=== PATIENT | male | born 1985 | race Caucasian/White ===

== ENCOUNTER 2017-01-28 06:02 | Day surgery (SDC) | payer BC ==
--- NOTE | ~2017-01-28 | OP ---
Record Of Operation [facility] [address] [place]. [address] NAME: ELENA TURNER : 81 STATUS : [facility] [place] PAT#: [id number] AGE: 31 ADM/REG DATE : 01/28/17 MR#: [id number] REPORT SERV DATE: 01/28/17 DICTATED BY: ZACH MOORE DATE: 01/28/17 REPORT STATUS : Draft TRANSCRIBED BY: MODL DATE: 01/28/17 DATE OF PROCEDURE: 01/28/2017 PREOPERATIVE DIAGNOSES: 1. Bilateral inguinal hernias, right greater than left. 2. Nicotine dependence. POSTOPERATIVE DIAGNOSES: 1. Bilateral inguinal hernias, right greater than left. 2. Nicotine dependence. PROCEDURE: Robotic indirect reducible bilateral inguinal hernias with mesh. ANESTHESIA: General. SURGEON: Zach Moore M.D. COMMODITY MANAGEMENT SPECIALIST: Abdoulaye. COMPLICATIONS: None. DRAINS: None. ESTIMATED BLOOD LOSS: 20 mL. FINDINGS: The patient was noted to have bilateral indirect inguinal hernias. OPERATIVE TECHNIQUE: The patient was brought to the operating room and placed on the table in supine position. He had preoperative IV antibiotics. He had sequential hose in place. He voided prior to the procedure. He underwent general endotracheal anesthesia and was prepped and draped in sterile fashion and a time-out was completed. Local anesthesia was instilled to the periumbilical skin. A 15 blade knife was used to make incision in the supraumbilical skin. The Veress needle was inserted with the skin and fascia were elevated. The Veress in the water drop test was safely performed. A 15 mm of pneumoperitoneum was obtained. An 11 mm trocar was then inserted with the Optiview under direct visualization in the abdomen, and the laparoscope was inserted. There was no evidence of Veress or trocar injury. The patient was then placed in Trendelenburg and the laparoscope revealed the patient had bilateral indirect inguinal hernias. They were reducible clinically. At this point, the 8 mm robotic trocars were placed in the right and left lateral abdomen perpendicular to the camera trocar. The dissection began with scissors at #1 and a fenestrated bipolar in the left hand and #2 trocar. The peritoneal reflection was taken down at the anterior iliac spine on the right side and carried toward the median umbilical ligament. The peritoneal flap was then created at the median umbilical ligament all the way down to Abdoulaye's ligament and was dissected approximately 3 cm below the Abdoulaye's. The direct space was completely dissected and there was no evidence of any direct inguinal hernia. The inferior epigastric vessels were identified. The dissection continued medial Record Of Operation [facility] [address] [place]. [address] NAME: ELENA TURNER : 81 STATUS : [facility] [place] PAT#: [id number] AGE: 31 ADM/REG DATE : 01/28/17 MR#: [id number] REPORT SERV DATE: 01/28/17 DICTATED BY: ZACH MOORE DATE: 01/28/17 REPORT STATUS : Draft TRANSCRIBED BY: MODCasey DATE: 01/28/17 to lateral to reduce the peritoneum, which was visualized throughout away from the cord structures and that were identified and preserved throughout the procedure. The dissection continued laterally until iliopubic tract and transversus arch were identified. They were carefully bluntly dissected as well. The dissection was performed below this area to help prevent cutaneous nerve injury. The indirect inguinal hernia sac was then identified and carefully reduced far proximal to where the vas joined the cord. With the elevation of the peritoneum, the reduction was confirmed. Of note, before the robot was docked to begin procedure, the laparoscope was used to place both of the Prograf mesh with the sutures from inside after they had been previously folded and marked. The docking was in standard fashion. The mesh was then placed for the right side with a green stripe in the midline just to the left side of the midline and the mesh was then unfolded carefully removing the suture and pushing the mesh toward the tissue to cover the entire myopectineal space on the right side. At this point, the suture was left in the operative field in the pre- peritoneum. At this point, the dissection was then turned to the left side and the procedure began and continued exactly as for the right, and after the hernia was reduced and there was no evidence of any other defects, the mesh was placed for the left side exactly as described for the right. The two green markers on the mesh were reapproximated and overlapped, so that the mesh did overlap in the midline. The entire left myopectineal space was covered with this mesh as well, though extended 2 cm below the Abdoulaye's ligament bilaterally. There was no evidence of any other defects or bleeding. At this point, the pneumoperitoneum was reduced and the two sutures of 2-0 absorbable V-Loc were used to reapproximate the peritoneum without tension. The pneumoperitoneum was aspirated as all the instruments and trocars removed after undocking. The fascia was reapproximated using two interrupted 0 Vicryl sutures in the midline and the skin was reapproximated using an interrupted subcuticular Monocryl suture. Dermabond was applied. He was extubated and taken to the recovery room in stable condition. All sponge and needle counts reported correct. /MODL Zach Moore M.D. / [id number] CC: Lisette Heath M.D.
[~2017-01-28 06:02] MED LIST: ADDER10 PO; FISH-EPA1000 MG PO; MULTIPLE VIT PO; TUMERIC PO
== END 2017-01-28 16:10 | disposition home or self-care (01) ==
LOC: SDC 06:02
PROVIDERS: Surgery
PROC: 0YUA4JZ Supplement Bilateral Inguinal Region with Synthetic Substitute, Percutaneous Endoscopic Approach (ICD-10-PCS; principal; 2017-01-28 07:00)
DX: K40.20 Bilateral inguinal hernia, without obstruction or gangrene, not specified as recurrent (principal); F17.210 Nicotine dependence, cigarettes, uncomplicated; F90.9 Attention-deficit hyperactivity disorder, unspecified type; Z98.890 Other specified postprocedural states
CPT/HCPCS: A9270-GY; C1781; J0690; J1885; J2250; J2405; J2550; J2710; J2795; J3010